=== PATIENT | female | born 1985 | race Caucasian/White ===

== ENCOUNTER 2016-10-27 16:52 | Emergency (ER) | payer OTHER ==
[~2016-10-27] VITALS: Ht 167.6 cm; Wt 59.0 kg
[2016-10-27] MEDS ORDERED: FLEXERIL PO (17:51)
[2016-10-27] MEDS ORDERED: NORCO 5-325 TA1 EACH PO (18:01)
[2016-10-27 18:10] VITALS: BP 118/72
== END 2016-10-27 18:11 | disposition home or self-care (01) ==
LOC: ER 16:52
DX: S16.1XXA Strain of muscle, fascia and tendon at neck level, initial encounter (principal); S20.211A Contusion of right front wall of thorax, initial encounter; V63.5XXA Driver of heavy transport vehicle injured in collision with car, pick-up truck or van in traffic accident, initial encounter; Y93.I9 Activity, other involving external motion; Y92.488 Other paved roadways as the place of occurrence of the external cause; Y99.9 Unspecified external cause status